=== PATIENT | male | born 1970 | race Caucasian/White ===

== ENCOUNTER 2018-11-20 00:19 | Emergency (ER) | payer MEDICAID, SELFPAY ==
[2018-11-20 00:19] VITALS: BP 123/80; PULSE 94; RESP 18; TEMP 36.8; O2SAT 96; BMI 20.6
--- NOTE | 2018-11-20 00:53 | ED.DCSUM_ITS ---
- ER Visit Summary Date of Service: 11/20/18 Chief Complaint: Boil on but. History of Present Illness: The patient is a 48 M who presents with a buttock abscess. He states he had similar symptoms 2 years ago. It has spontaneously drained once. He has developed recurrent pain redness and swelling over the last week. No systemic symptoms. No fevers chest pain shortness of breath vomiting diarrhea. Physical Examination: Afebrile vitals normal There is a small abscess on the right buttock with central fluctuance there is erythema and induration extending about 2 cm in diameter Test Results: Not indicated Emergency Department Course and Treatment: Patient was anesthetized with 1% lidocaine without epinephrine. A stab incision was made with a small amount of purulent drainage. This was poorly tolerated due to pain. Ideally I would perform a cruciate incision and break loculations with curved hemostats but he asked that the procedure be terminated due to pain. Therefore we will place on Keflex and Bactrim. He understands to return for new or worsening symptoms. He was discharged. Treatment Plan: [] Disposition: Discharge Impression: Right buttock abscess Incision and drainage of abscess This note was generated with [employer] dictation software. It may contain incorrect words, spelling, and punctuation that were not noted in review of the chart prior to signing ED Disposition - Plan for ED Patient: Referrals: Tyler Munroe MD [Primary Care Provider] -
--- NOTE | 2018-11-20 00:53 | ED.DEP ---
ED Disposition - Plan for ED Patient: Instructions: ED Abscess IandD Prescriptions: Cephalexin [Keflex] 500 mg PO Q6 #40 cap Smz/Tmp Ds [Bactrim Ds] 1 tab PO BID #14 tab Referrals: Tyler Munroe MD [Primary Care Provider] -
--- NOTE | 2018-11-20 01:10 | ED.RN ---
PT LEFT PRIOR TO RECEIVING PRESCRIPTIONS AND D/C INSTRUCTIONS
== END 2018-11-20 01:11 | disposition home or self-care (01) ==
PROVIDERS: Emergency Provider Emergency Medicine; Family Provider Family Medicine; PCP Family Medicine
DX: L02.31 Cutaneous abscess of buttock (principal); Z72.0 Tobacco use
CPT/HCPCS: 10060; 99282